=== PATIENT | female | born 1995 | race Caucasian/White ===

== ENCOUNTER 2022-05-06 18:02 | Day surgery (SDC) | payer OTHER ==
[2022-05-06] MEDS ORDERED: hydrALAZINE 20 MG/ML VIAL SLOW IVP PRN (18:54)
== END 2022-05-06 21:15 | disposition home or self-care (01) ==
LOC: UNDOADMIN 18:02 → CSHLD/OP 18:02 → CSHLD 18:02 → UNDODISIN 21:15 → CSHLD/OP 21:15 → EDSTATUS 05-07 14:34
PROVIDERS: ATTEND Obstetrics & Gynecology
DX: O36.8320 Maternal care for abnormalities of the fetal heart rate or rhythm, second trimester, not applicable or unspecified (principal); Z3A.25 25 weeks gestation of pregnancy; Z87.59 Personal history of other complications of pregnancy, childbirth and the puerperium
CPT/HCPCS: 76805; 99281

== ENCOUNTER 2022-05-09 18:31 | Inpatient (IN) | payer OTHER ==
[2022-05-09] MEDS ORDERED: Acetaminophen 500 MG TAB PO PRN (19:16)
[2022-05-09] MEDS ORDERED: Ondansetron PF 4 MG/2 ML Vial IVP PRN (19:16)
[2022-05-09] MEDS ORDERED: Diphenoxylate HCl/Atropine Tablet PO PRN (19:16)
[2022-05-09] MEDS ORDERED: Carboprost 250 MCG/ML AMP IM PRN (19:16)
[2022-05-09] MEDS ORDERED: Promethazine HCl 25 MG/ML VIAL IM PRN (19:16)
[2022-05-09] MEDS ORDERED: Tranexamic Acid 1,000 MG/10 ML VIAL IVP PRN (19:16)
[2022-05-09] MEDS ORDERED: Butorphanol Tartrate 1 MG/ML VIAL SLOW IVP PRN (19:16)
[2022-05-09] MEDS ORDERED: hydrALAZINE 20 MG/ML VIAL SLOW IVP PRN (19:16)
[2022-05-09] MEDS ORDERED: NS w/ Oxytocin 30 units 500 ML IV SCH (19:30)
[2022-05-09] MEDS ORDERED: Lactated Ringer's 1,000 ML IV SCH (19:30)
[2022-05-09] MEDS ORDERED: Ibuprofen 800 MG TAB PO PRN (19:41)
[2022-05-09] MEDS ORDERED: HYDROcodone/Acetaminophen 5/325 mg Tablet PO PRN (19:41)
[2022-05-09 20:44] VITALS: BMI 22.3
[2022-05-09 21:00] LABS: Hemoglobin 10.9 g/dL (12.0-15.5); Mean Corpuscular HGB CONC 30.2 g/dL (32.0-36.0); Mean Corpuscular Hemoglobin 23.1 pg (27.0-33.0); Mean Corpuscular Volume 76.5 fl (81.6-98.3); Mean Platelet Volume 10.2 fl (7.4-10.4); Platelet Count 281 10x3/uL (130-400); RBC Distribution Width 21.1 % (11.5-14.5); Red Blood Cell (RBC) Count 4.72 10x6/uL (3.90-5.03)
[2022-05-09] MEDS: Misoprostol 100 MCG TAB VAG SCH (22:06)
[2022-05-09 22:34] LABS: Amphetamine Not Detected (NotDetected); Barbiturates Screen Not Detected (NotDetected); Benzodiazepine Screen Not Detected (NotDetected); Cocaine Metabolite Screen Not Detected (NotDetected); Methadone Not Detected (NotDetected); Methamphetamine Not Detected (NotDetected); Opiate Screen Not Detected (NotDetected); Oxycodone Screen Not Detected (NotDetected); Phencyclidine (PCP) Not Detected (NotDetected); THC/Cannabinoid Screen Not Detected (NotDetected); Tricyclic Screen Not Detected (NotDetected)
[2022-05-09 23:51] LABS: Syphilis Antibody Nonreactive (Nonreactive); Syphilis Antibody Index 0.15 S/CO (<1.00 Non-Reactive)
[2022-05-09 23:53] LABS: HBSAg Index 0.13 S/CO (0-0.99); Hep B Surf Ag - L&D Non-Reactive S/CO (NonReactive)
[2022-05-10] MEDS: Misoprostol 100 MCG TAB VAG SCH (04:04)
[2022-05-10] MEDS ORDERED: Morphine 4 MG/ML VIAL ONE (06:24)
[2022-05-10] MEDS ORDERED: Boostrix 0.5 ML (Tdap) VIAL (>/=7 yrs of age) IM ONE (07:05)
[2022-05-10] MEDS ORDERED: Bisacodyl 10 MG SUPP PR PRN (07:05)
[2022-05-10] MEDS ORDERED: diphenhydrAMINE 25 MG CAP PO PRN (07:05)
[2022-05-10] MEDS ORDERED: Lanolin Ointment 7 GM TUBE TOP PRN (07:05)
[2022-05-10] MEDS ORDERED: Preparation H Ointment 28 GM TUBE PR PRN (07:05)
[2022-05-10] MEDS ORDERED: Misoprostol 200 MCG TAB VAG PRN (07:05)
[2022-05-10] MEDS ORDERED: hydrALAZINE 20 MG/ML VIAL SLOW IVP PRN (07:05)
[2022-05-10] MEDS ORDERED: Methylergonovine 0.2 MG/ML VIAL IM PRN (07:05)
[2022-05-10] MEDS ORDERED: Milk Of Magnesia 30 ML UDCUP PO PRN (07:05)
[2022-05-10] MEDS ORDERED: Ferrous Sulfate 325 MG TAB PO SCH (08:00)
[2022-05-10] MEDS ORDERED: Docusate 100 MG CAP PO SCH (09:00)
[2022-05-10] MEDS ORDERED: Prenatal Vitamin 1 TAB PO SCH (09:00)
== END 2022-05-10 18:55 | disposition home or self-care (01) | DRG 807 ==
LOC: CSHLD 18:31
PROVIDERS: ADMIT Obstetrics & Gynecology; ATTEND Obstetrics & Gynecology
PROC: 3E0P7VZ Introduction of Hormone into Female Reproductive, Via Natural or Artificial Opening (ICD-10-PCS; 2022-05-09)
PROC: 10E0XZZ Delivery of Products of Conception, External Approach (ICD-10-PCS; principal; 2022-05-10)
DX: O36.4XX0 Maternal care for intrauterine death, not applicable or unspecified (principal); Z37.1 Single stillbirth; Z3A.26 26 weeks gestation of pregnancy; O34.211 Maternal care for low transverse scar from previous cesarean delivery; O69.2XX0 Labor and delivery complicated by other cord entanglement, with compression, not applicable or unspecified
CPT/HCPCS: 36415; 80306; 85027; 85460; 86780; 86850; 86900; 86901; 87340; J7120